=== PATIENT | female | born 1990 | race Caucasian/White ===

== ENCOUNTER 2019-03-08 16:30 | Emergency (ER) | payer OTHER ==
[~2019-03-08] VITALS: Wt 52.0 kg
[2019-03-08 16:32] VITALS: BP 124/77; PULSE 82; RESP 18
--- NOTE | 2019-03-08 17:57 | ERD ---
ER Documentation Chief Complaint Chief Complaint ap x 2 days HPI 28-year-old female, previously healthy, presents to the emergency department, complaining of 2 days with progressive right lower quadrant abdominal pain, that started in the periumbilical area, associated with nausea and chills but no fever or vomiting. The patient denies diarrhea or constipation, no urinary symptoms. No history of abdominal surgeries. ROS All systems reviewed and are negative except as per history of present illness. Medications Home Meds Active Scripts Ibuprofen* (Motrin*) 400 Mg Tab, 400 MG PO Q6H PRN for PAIN AND OR ELEVATED TEMP, #20 TAB Prov:YUDELKA GARCIA MD 03/08/19 Ranitidine Hcl* (Zantac*) 150 Mg Tablet, 150 MG PO BID PRN for EPIGASTRIC PAIN, #10 TAB Prov:YUDELKA GARCIA MD 03/08/19 Allergies Allergies: Coded Allergies: No Known Allergy (Unverified , 03/08/19) PMhx/Soc Medical and Surgical Hx: pt denies Medical Hx, pt denies Surgical Hx Hx Alcohol Use: No Hx Substance Use: No Hx Tobacco Use: No Smoking Status: Never smoker FmHx Family History: No diabetes, No coronary disease Physical Exam Vitals Vital Signs Date Temp Pulse Resp B/P (MAP) Pulse Ox O2 O2 Flow FiO2 Time Delivery Rate 03/08/19 98.1 82 18 124/77 99 16:32 (93) Physical Exam Patient alert, oriented, vital signs stable. HEAD: Normocephalic, atraumatic. EYES: PERRLA, EOMI, Sclera and conjunctiva appear normal. NOSE: Clear and patent nostrils. EARS: Canals clear, tympanic membranes WNL. MOUTH: normal lips and tongue, no oral lesions. THROAT: Normal oropharynx, no tonsillar exudates. NECK: Supple, No lymphadenopathy. Full ROM without pain or tenderness. HEART: RRR, no rubs, murmurs, clicks or gallops. LUNGS: Clear to auscultation. ABDOMEN: Soft, tender to palpation in the right lower quadrant area, no definitive peritoneal signs, no masses or hepatosplenomegaly. EXTREMITIES: No edema bilaterally. BACK: Full ROM, no deformity, normal back exam NEURO: Cranial nerves grossly intact, no motor or sensory deficit SKIN: No rashes, no petechia. Result Diagram: 6/1/19 18003/08/19 180 Results 24 hrs Laboratory Tests Test 03/08/19 17:49 03/08/19 18:01 03/08/19 18:08 03/08/19 18:09 POC Beta HCG, NEGATIVE NEGATIVE Qualitative Bedside Urine pH (LAB) 7.5 7.0 Bedside Urine Protein Negative Negative (LAB) Bedside Urine Glucose Negative Negative (UA) Bedside Urine Ketones Negative Negative (LAB) Bedside Urine Blood Negative Negative Bedside Urine Nitrite Negative Negative (LAB) Bedside Urine Negative Negative Leukocyte Esterase (L White Blood Count 9.9 10^3/ul Red Blood Count 3.51 10^6/ul Hemoglobin 10.0 g/dl Hematocrit 31.8 % Mean Corpuscular 90.6 fl Volume Mean Corpuscular 28.5 pg Hemoglobin Mean Corpuscular 31.4 g/dl Hemoglobin Concent Red Cell Distribution 15.3 % Width Platelet Count 440 10^3/UL Mean Platelet Volume 9.7 fl Immature Granulocytes 0.200 % % Neutrophils % 55.4 % Lymphocytes % 37.6 % Monocytes % 5.9 % Eosinophils % 0.3 % Basophils % 0.6 % Nucleated Red Blood 0.0 /100WBC Cells % Immature Granulocytes 0.020 10^3/ul # Neutrophils # 5.5 10^3/ul Lymphocytes # 3.7 10^3/ul Monocytes # 0.6 10^3/ul Eosinophils # 0.0 10^3/ul Basophils # 0.1 10^3/ul Nucleated Red Blood 0.0 10^3/ul Cells # Sodium Level 142 mmol/L Potassium Level 4.5 mmol/L Chloride Level 108 mmol/L Carbon Dioxide Level 25 mmol/L Anion Gap 9 Blood Urea Nitrogen 7 mg/dl Creatinine 0.50 mg/dl Est Glomerular Filtrat > 60 mL/min Rate mL/min Glucose Level 85 mg/dl Calcium Level 9.7 mg/dl Total Bilirubin 0.3 mg/dl Direct Bilirubin 0.00 mg/dl Indirect Bilirubin 0.3 mg/dl Aspartate Amino 24 IU/L Transf (AST/SGOT) Alanine 13 IU/L Aminotransferase (ALT/ SGPT) Alkaline Phosphatase 54 IU/L Total Protein 8.2 g/dl Albumin 4.7 g/dl Globulin 3.50 g/dl Albumin/Globulin Ratio 1.34 Lipase 82 U/L Patient: MARJAN STONER : 1990 Age: 28 Sex: F MR #: [id number] DOS: 03/08/19 1755 Ordering MD: YUDELKA GARCIA MD Location: [facility] Room/Bed: PROCEDURE: CT Abdomen and pelvis without contrast. CLINICAL INDICATION: Abdominal pain. TECHNIQUE: CT scan of the abdomen and pelvis was performed on a multi-dete ctor high-resolution CT scanner. Contiguous axial images were obtained from the lung bases to the ischial tuberosities without intravenous contrast. Coronal and sagittal reformatted images were also obtained. Images were reviewed on the PACS workstation. DICOM images are available. One or more of the following dose reduction techniques were used: - Automated exposure control. - Adjustment of the mA and/or kV according to patient size. - Use of iterative reconstruction technique. Exam CTD/vol = 4.84 mGy. Total exam DLP = 260.25 mGy-cm. COMPARISON: None. FINDINGS: Evaluation of the lung bases demonstrates no pleural or parenchymal disease. Abdomen: The liver is normal in size. There is no focal mass or dilatation of the biliary tree. The gallbladder is not distended. There are multiple gallstones measuring up to 6 mm in size. The spleen, pancreas and bilateral adrenal glands are within normal limits. Bilateral kidneys are normal in size with no contour deforming mass identified. There is no radiopaque renal or ureteral calculus identified. There is no hydronephrosis or hydroureter. There is no retroperitoneal adenopathy. The abdominal aorta is of normal caliber. Evaluation of the bowel is limited by lack of contrast. There is moderate retained stool within the colon. There is no bowel obstruction or free air. A normal appendix is identified. There is no diverticulosis or diverticulitis. There is no ascites. Pelvis: The bladder is unremarkable. The uterus and adnexa are within normal limits. There is trace pelvic free fluid. There is no significant pelvic adenopathy. Evaluation of the osseous structures demonstrates no suspicious lytic or blastic lesion. IMPRESSION: Moderate retained stool within the colon. Trace pelvic free fluid. Cholelithiasis. Otherwise no acute abnormality identified within the abdomen and pelvis. A normal appendix is identified. Procedures/MDM Vital signs stable. Differential diagnosis include but not limited to: UTI, colitis, gastroenteritis, kidney stones, irritable bowel syndrome, inflammatory bowel syndrome, malabsorption syndrome, cholelithiasis, food intolerance, me dication side effect, pancreatitis, diverticulitis, bowel obstruction. Physical examination and clinical presentation consistent most likely with cholelithiasis without evidence of cholecystitis or acute abdomen. During the ED course the patient remained stable, no new complaints. Results and clinical impression discussed with the patient who agrees with management. The patient is stable to be treated outpatient and will be discharged home; some side effects of prescribed medications (headache, rash, nausea, vomiting, diarrhea, drowsiness, habituation, bleeding, hypertension, interactions with other medications) were reviewed. The patient was informed that the evaluation in the emergency department has been done to rule out an acute emergency, therefore, chronic conditions like malignancy or other diseases have not been evaluated; therefore, the patient was instructed to follow up with the primary care provider in the next 48h. If symptoms persist, worsen or new symptoms develop, then patient should return to the ED immediately. Instructions explained and given directly by me to the patient with acknowledgment and demonstrated understanding. Disclaimer: Inadvertent spelling and grammatical errors are likely due to EHR/dictation software use and do not reflect on the overall quality of patient care. Also, please note that the electronic time recorded on this note does not necessarily reflect the actual time of the patient encounter. Departure Diagnosis: Primary Impression: Right lower quadrant abdominal pain Additional Impression: Cholelithiasis Condition: Stable Additional Instructions: Thank you very much for allowing us to participate in your care. Your health and safety is our top priority at [facility]. The evaluation in the emergency department has been done to rule out an acute emergency, therefore, chronic conditions like malignancy or other diseases have not been evaluated; therefore, you need to follow up with a primary care provider in the next 48h. If symptoms persist, worsen or new symptoms develop, then patient should return to the ED immediately. Call your primary care doctor TOMORROW for an appointment during the next 2-4 days and bring all the information provided. Have prescriptions filled and follow precisely the directions on the label. If the symptoms get worse and your provider is unavailable, return to the Emergency Department immediately. YUDELKA GARCIA MD Mar 08, 2019 17:57
[2019-03-08] MEDS ORDERED: RANI150T35 PO (18:52)
[2019-03-08] MEDS ORDERED: IBUP-1561 PO (18:52)
== END 2019-03-08 19:03 | disposition home or self-care (01) ==
LOC: FTE 16:30
DX: K80.20 Calculus of gallbladder without cholecystitis without obstruction (principal)
CPT/HCPCS: 74176; 80053; 81003; 81025; 83690; 85025; Z7502